=== PATIENT | female | born 1955 ===

== ENCOUNTER → 2018-08-28 14:07 | Outpatient (REF) | payer SELFPAY ==
[2018-08-28 14:28] LABS: Calcium 9.5 mg/dL (8.4-10.2); Cholesterol 218 mg/dL (140-199); HDL Cholesterol 56 mg/dL (40-60); HEMOLYSIS < 15 (0-50); LDL Cholesterol Calculated 132 mg/dL (<100); Magnesium 2.2 mg/dL (1.6-2.3); Triglycerides 150 mg/dL (35-150)
== END ==
LOC: LAB 14:07
PROVIDERS: Visit Provider Family Medicine
DX: E83.51 Hypocalcemia (principal); E87.6 Hypokalemia; E83.42 Hypomagnesemia
CPT/HCPCS: 36415; 80061; 82310; 83735; 84132